=== PATIENT | female | born 1965 ===

== ENCOUNTER 2021-08-08 08:54 | Outpatient (CLI) | payer OTHER | END 2021-08-08 08:56 | disposition home or self-care (01) | LOC: SONOGRAMA 08:54 | PROVIDERS: ATTEND Pathology Anatomic Pathology & Clinical Pathology | DX: E04.1 Nontoxic single thyroid nodule (principal) ==

== ENCOUNTER 2021-11-10 08:04 | Outpatient (CLI) | payer OTHER | END 2021-11-10 08:08 | disposition home or self-care (01) | LOC: SONOGRAMA 08:04 | PROVIDERS: ATTEND Pathology Anatomic Pathology & Clinical Pathology | DX: E04.9 Nontoxic goiter, unspecified (principal) ==